=== PATIENT | male | born 1995 | race Hispanic/Latino ===

== ENCOUNTER 2017-12-01 19:09 | Emergency (ER) | payer SELFPAY | END 2017-12-01 20:00 | disposition home or self-care (01) | LOC: EDH 19:09 | DX: T16.1XXA Foreign body in right ear, initial encounter (principal); Z72.0 Tobacco use; X58.XXXA Exposure to other specified factors, initial encounter; Y93.89 Activity, other specified; Y92.89 Other specified places as the place of occurrence of the external cause; Y99.8 Other external cause status | CPT/HCPCS: 69200 ==

== ENCOUNTER 2023-06-28 14:25 | Emergency (ER) | payer BC, OTHER ==
[~2023-06-28] VITALS: Ht 182.9 cm; Wt 136.1 kg
[2023-06-28 15:43] LABS: HEMATOCRIT 45.1 % (42-54); MEAN CORPUSCULAR HGB CONC 33.5 g/dL (32.0-36.0); MEAN CORPUSCULAR VOLUME 83.7 fL (79-99); PLATELET COUNT (AUTO) 463 K/uL (130-400); RED BLOOD CELL COUNT(AUTO) 5.39 MIL/uL (4.50-6.20); RED CELL DISTRIBUTION WIDTH 13.3 % (11.0-15.5); WHITE BLOOD COUNT (AUTO) 15.3 K/uL (4.8-10.8)
[2023-06-28 15:54] LABS: INR 0.94 (0.85-1.15); PROTHROMBIN TIME 10.9 SEC (9.6-11.6)
[2023-06-28 15:55] LABS: PARTIAL THROMBOPLASTIN TIME 29.7 SEC (26.3-35.5)
[2023-06-28 16:18] LABS: ALBUMIN 3.7 g/dL (3.5-5.0); BILIRUBIN,TOTAL 0.5 mg/dL (0.2-1.0); CREATININE 0.9 mg/dL (0.5-1.5); TOTAL PROTEIN, SERUM 8.4 g/dL (6.0-8.3)
[2023-06-28 16:26] LABS: POTASSIUM 3.3 mmol/L (3.5-5.1)
[2023-06-28 16:28] LABS: LYMPHOCYTES % (MANUAL) 20 % (22-44); MONOCYTES % (MANUAL) 11 % (2-9); SEGMENTED NEUTROPHILS % 69 % (40-70); TOTAL CELLS COUNTED 100
[2023-06-28] MEDS ORDERED: ACETAMINOPHEN 500 MG TABLET PO ONE (16:30)
[2023-06-28] MEDS ORDERED: LACTATED RINGERS 1000ML 1,000 ML IV ONE (16:30)
[2023-06-28 16:31] LABS: MAN.DIFF COMMENT-IMPRESSION MANUAL DIFFERENTIAL
[2023-06-28 16:41] LABS: PLATELET MORPHOLOGY COMMENT SLIGHT INCREASED
[2023-06-28] MEDS ORDERED: KETOROLAC 15MG/ML VIAL (15MG/ML) IV ONE ×2 (17:30→19:00)
[2023-06-28 17:56] VITALS: BP 135/74; PULSE 88; RESP 16; O2SAT 100
[2023-06-28] MEDS ORDERED: ONDA4TAB10 PO (18:27)
[2023-06-28] MEDS ORDERED: FIORIT PO (18:27)
== END 2023-06-28 18:54 | disposition home or self-care (01) ==
LOC: EDH 14:25
DX: S02.109A Fracture of base of skull, unspecified side, initial encounter for closed fracture (principal); R51.9 Headache, unspecified; F20.9 Schizophrenia, unspecified; F31.9 Bipolar disorder, unspecified; W18.39XA Other fall on same level, initial encounter; Y93.89 Activity, other specified; Y92.89 Other specified places as the place of occurrence of the external cause; Y99.8 Other external cause status
CPT/HCPCS: 99284; 96374; 70450; 96361; 80053; 85025; 85610; 85730; 36415; 96376; J7120; J1885 ×2; 96375